=== PATIENT | female | born 1970 | race Caucasian/White ===

== ENCOUNTER 2022-06-11 13:03 | Outpatient (REF) | payer MEDICARE, SELFPAY ==
--- NOTE | ~2022-06-11 | XR_ITS ---
EXAMINATION: XR ANKLE, LEFT CLINICAL INFORMATION: Ankle pain COMPARISON: None TECHNIQUE: AP, lateral, and mortise views of the left ankle. FINDINGS: No visible acute fracture or dislocation. Alignment is anatomic. Joint spaces are maintained. No joint effusion. No abnormal soft tissue calcification. XR/XR ankle LT min 3V IMPRESSION: No radiographic evidence of acute osseous abnormality.
== END 2022-06-11 13:04 | disposition home or self-care (01) ==
LOC: HO.HOSX 13:03
PROVIDERS: PCP Nurse Practitioner Family; Visit Provider Physician Assistant
DX: S93.402A Sprain of unspecified ligament of left ankle, initial encounter (principal); W10.9XXA Fall (on) (from) unspecified stairs and steps, initial encounter; Y93.9 Activity, unspecified; Y92.9 Unspecified place or not applicable; Y99.9 Unspecified external cause status
CPT/HCPCS: 73610; 99202

== ENCOUNTER 2022-07-16 12:00 | Outpatient (RCR) | payer BC, SELFPAY ==
--- NOTE | 2022-06-19 09:09 | MHC.PT.EP ---
[facility] [place] [facility] [place] [facility] [place] [facility] [address] [phone] F: [phone] F: [phone] F: [phone] F: [phone] Physical Therapy Plan of Care Date of Evaluation: Date of Surgery: Diagnosis: L ankle sprain Assessment: Patient is a pleasant 51 y.o. F who is referred to PT by Valeri Araiza PA-C with Dx of L ankle sprain. PT diagnosis is consistent with this Dx. Patient impairments include pain, swelling and bruising, weakness, limited ROM, antalgic gait. Patient current functional limitations are ambulation, stair use, bend/squat, prolonged standing, balance, don/doff shoes and socks.Patient will benefit from skilled PT to address aforementioned impairments and functional limitations to meet established goals. Frequency and Duration: The patient will be seen 1-2x/week for 4 weeks Short Term Goals: 2 weeks Patient demonstrates consistency and independence with HEP to self manage symptoms. Patient presents with decreased swelling L ankle 23 cm at malleoli circumference. Residential Interior Designer Goals: 4 weeks Patient demonstrates increased L ankle DF 5 degrees to normalize gait pattern without boot level surfaces. Patient presents with increased L ankle eversion/inversion 5/5 to be able to stand to cook without difficulty. Treatment Plan: Modalities to reduce pain, spasms and effusion. Manual therapy to restore motion and function. Therapeutic exercise to improve strength and flexibility. Neuromuscular re-education for posture and balance. Therapeutic activities to return to functional activities of daily living. Electronically signed by: Silvia Neal, PT, DPT Please sign and return to therapist. Thank you for your referral.
--- NOTE | 2022-07-30 09:19 | MHC.PT.DC ---
[facility] [place] Office [place] Office [place] Office [address] [phone] F: [phone] F: [phone] F: [phone] F: [phone] Physical Therapy Discharge Report Diagnosis: L ankle sprain Date of Surgery: Date of Evaluation: 06/18/22 Date of Discharge: 07/16/22 Treatments to Date: 6 Cancellations to Date: No Shows to Date: Discharge Status: Achieved Goals Improved Function Independent with HEP Patient Elected to Stop Discharge Summary: Patient called after her last visit on 07/16/22 to reports she feels better and does not feel she needs further PT. She is discharged from PT at this time. Electronically signed by: Silvia Neal, PT, DPT Please sign and return to therapist. Thank you for your referral.
== END 2022-07-30 09:19 | disposition home or self-care (01) ==
LOC: HO.PT 12:00
PROVIDERS: PCP Nurse Practitioner Family; Visit Provider Physician Assistant
DX: S93.402A Sprain of unspecified ligament of left ankle, initial encounter (principal)
CPT/HCPCS: 97110; 97112; 97116; 97140; 97161; 97530